=== PATIENT | male | born 1980 | race Hispanic/Latino ===

== ENCOUNTER → 2017-02-12 | Outpatient (CLI) | payer OTHER ==
--- NOTE | 2017-02-12 15:24 | RAD ---
EXAM DESCRIPTION: Hand,Right 3 Views CLINICAL HISTORY: 36 years Male, PAIN COMPARISON: None. FINDINGS: 3 views of the right hand show a few bone fragments adjacent to the terminal tuft of the right thumb, questionable acuity. No additional fracture or malalignment is identified. The joint spaces are fairly well-maintained. There is no radiopaque foreign body or soft tissue gas. IMPRESSION: Terminal tuft fracture right thumb, questionable acuity. No additional abnormality to explain patient symptoms. Electronically signed by: Jeff Jo MD 02/12/2017 3:23 PM [facility]
--- NOTE | 2017-02-12 15:26 | RAD ---
EXAM DESCRIPTION: Thumb,Right CLINICAL HISTORY: 36 years Male, PAIN COMPARISON: None. FINDINGS: 3 views of the right thumb show a few small bone fragment adjacent to the terminal tuft. No additional fracture or malalignment is seen. The joint spaces are well-maintained. No radiopaque foreign body or soft tissue gas. IMPRESSION: Right thumb terminal tuft fracture without significant displacement. Electronically signed by: Jeff Jo MD 02/12/2017 3:24 PM [facility]
== END | disposition home or self-care (01) ==
LOC: RAD 09:05
PROVIDERS: ATTEND Orthopaedic Surgery
DX: M79.641 Pain in right hand (principal)

== ENCOUNTER → 2017-02-26 | Outpatient (CLI) | payer OTHER ==
--- NOTE | 2017-02-26 09:28 | RAD ---
EXAM DESCRIPTION: Fingers,Right CLINICAL HISTORY: 36 years Male, CLOSED FX OF ONE MORE PHALANGES OF HAND-RIGHT COMPARISON: None. FINDINGS: Nondisplaced fracture of the tuft of the distal phalanx of the right thumb is present with essentially anatomic alignment. Slight fragmentation of the tuft and no soft tissue foreign body is noted. Remainder of the labrum is intact. Three views of the right thumb were obtained. IMPRESSION: Nondisplaced fracture of the tuft of the distal phalanx of the thumb. Electronically signed by: Johnson Florentino MD 02/26/2017 9:27 AM [facility]
== END | disposition home or self-care (01) ==
LOC: RAD 08:26
PROVIDERS: ATTEND Orthopaedic Surgery
DX: S62.600D Fracture of unspecified phalanx of right index finger, subsequent encounter for fracture with routine healing (principal)

== ENCOUNTER → 2019-04-16 | Outpatient (CLI) | payer OTHER ==
--- NOTE | 2019-04-16 13:56 | RAD ---
EXAM DESCRIPTION: Wrist,Left 3 Views CLINICAL HISTORY: 38 years Male, PAIN IN LEFT WRIST COMPARISON: None available. FINDINGS: The visualized bones are well-mineralized. Overlying orthopedic cast limits detailed bony evaluation. Comminuted fracture of the distal radius with dorsal dislocation of the distal fracture fragments. Diffuse soft tissue swelling. IMPRESSION: Comminuted fracture of the distal radius with dorsal dislocation of the distal fracture fragments. Electronically signed by: Julita Canales MD 04/16/2019 1:55 PM [facility]
--- NOTE | 2019-04-16 13:57 | RAD ---
EXAM DESCRIPTION: Wrist,Left 3 Views CLINICAL HISTORY: 38 years Male, CLOSED FRACTURE OF DISTAL END OF RADIUS LEFT COMPARISON: None available. FINDINGS: The visualized bones are well-mineralized. Comminuted fracture of the distal radius with persistent dorsal dislocation of the distal fracture fragments. Diffuse soft tissue swelling is noted. IMPRESSION: Comminuted fracture of the distal radius with persistent dorsal dislocation of the distal fracture fragments. Electronically signed by: Julita Canales MD 04/16/2019 1:55 PM [facility]
== END ==
LOC: RAD 07:56
PROVIDERS: ATTEND Orthopaedic Surgery
DX: S52.502A Unspecified fracture of the lower end of left radius, initial encounter for closed fracture (principal)

== ENCOUNTER → 2019-07-13 | Outpatient (CLI) | payer OTHER ==
--- NOTE | 2019-07-13 08:55 | RAD ---
EXAM DESCRIPTION: Wrist,Left 3 Views CLINICAL HISTORY: 39 years Male, FRACTURE OF DISTAL END OF RADIUS LEFT COMPARISON: June 01, 2019 Findings: 3 view(s)/radiograph(s) Redemonstrated healing internally fixated distal left radius fracture. No hardware complication. Stable alignment. No new fracture identified. Osteopenia. Remote ulnar styloid avulsion fracture. No acute fracture. No dislocation. Carpal alignment maintained. IMPRESSION: Healing internally fixated distal left radius fracture. Electronically signed by: Edgardo Arita MD 07/13/2019 8:53 AM [facility]
== END ==
LOC: RAD 08:26
PROVIDERS: ATTEND Orthopaedic Surgery
DX: S52.502D Unspecified fracture of the lower end of left radius, subsequent encounter for closed fracture with routine healing (principal)